=== PATIENT | female | born 1965 | race Caucasian/White ===

== ENCOUNTER 2018-05-09 18:25 | Inpatient (IN) | payer MEDICAID ==
[2018-05-09] MEDS ORDERED: Sodium Chloride 0.9% 1,000 ML IV ONE (18:38)
--- NOTE | 2018-05-09 18:38 | ED Physician Chart ---
ED Chief Complaint/HPI - Patient Information Date Seen:: 05/09/18 Time Seen:: 18:25 Chief Complaint:: Abdominal Pain History of Present Illness:: onset x 2 days of intermittent, diffuse, crampy abdominal pain, N/V/D; pt denies trauma, H/As, S/T, neck pain, cough, C/P, SOB, A/C, fever, chills, or urinary s/s Allergies:: Allergies Allergy/AdvReac Type Severity Reaction Status Date / Time No Known Allergies Allergy Verified 05/09/18 18:29 Historian:: Patient Review:: Nurse's Note Reviewed, Old Chart Reviewed <Jn Small - Last Filed: 05/09/18 18:34> - Patient Information Allergies:: Allergies Allergy/AdvReac Type Severity Reaction Status Date / Time No Known Allergies Allergy Verified 05/09/18 18:29 Vitals:: Vital Signs - 8 hr 05/09/18 18:29 Temp 99.1 F HR 70 RR 25 BP 154/89 O2 Sat % 100 <Zeus Solomon - Last Filed: 05/10/18 02:07> ED Review of Systems - Review of Systems General/Constitutional: No fever, No chills, No weight loss, No weakness, No diaphoresis, No edema, No loss of appetite Skin: No skin lesions, No rash, No bruising Head: No headache, No light-headedness Eyes: No loss of vision, No pain, No diplopia ENT: No earache, No nasal drainage, No sore throat, No tinnitus Neck: No neck pain, No swelling, No thyromegaly, No stiffness, No mass noted Cardio Vascular: No chest pain, No palpitations, No PND, No orthopnea, No edema Pulmonary: No SOB, No cough, No sputum, No wheezing GI: Nausea, Vomiting, Diarrhea, Pain, No melena, No hematochezia, No constipation, No hematemesis G/U: No dysuria, No frequency, No hematuria, No nacturia [employer]: No vaginal discharge, No abnormal vaginal bleed, No contraction Musculoskeletal: No bone or joint pain, No back pain, No muscle pain Endocrine: No polyuria, No polydipsia Psychiatric: No prior psych history, No depression, No anxiety, No suicidal ideation, No homicidal ideation, No auditory hallucination, No visual hallucination Hematopoietic: No bruising, No lymphadenopathy Allergic/Immuno: No urticaria, No angioedema Neurological: No syncope, No focal symptoms, No weakness, No paresthesia, No headache, No seizure, No dizziness, No confusion, No vertigo <Jn Small - Last Filed: 05/09/18 18:34> ED Past Medical History - Past Medical History Obtainable: Yes Past Medical History: PUD/GERD Family History: HTN Social History: Non Smoker, No Alcohol, No Drug Use, Single Surgical History: None Psychiatricy History: None Medication: Reviewed <Jn Small - Last Filed: 05/09/18 18:34> - Past Medical History Surgical History: Hysterectomy (Dec 2016), other (Myomectomy 2004, 2010) <Zeus Solomon - Last Filed: 05/10/18 02:07> Family Medical History - Family Member Mother History Unknown: Yes <Zeus Solomon - Last Filed: 05/10/18 02:07> ED Physical Exam - Physical Examination General/Constitutional: Awake, Well-developed, well-nourished, Alert, No distress, GCS 15, Non-toxic appearing, Ambulatory Head: Atraumatic Eyes: Lids, conjuctiva normal, PERRL, EOMI Skin: Nl inspection, No rash, No skin lesions, No ecchymosis, Well hydrated, No lymphadenopathy ENMT: External ears, nose nl, TM canals nl, Nasal exam nl, Lips, teeth, gums nl , Oropharynx nl, Tonsils nl Neck: Nontender, Full ROM w/o pain, No JVD, No nuchal rigidity, No bruit, No mass, No stridor Respiratory: Nl effort/Exclusion, Clear to Auscultation, No Wheeze/Rhonchi/Rales Cardio Vascular: RRR, No murmur, gallop, rubs, NL S1 S2, Carotid/Femoral/Distal pulses equal bilaterally GI: No tenderness/rebounding/guarding, No organomegaly, No hernia, Normal BS's, Nondistended, No mass/bruits, No McBurney tenderness : No CVA tenderness Extremities: No tenderness or effusion, Full ROM, normal strength in all extremities, No edema, Normal digits & nails Neuro/Psych: Alert/oriented, DTR's symmetric, Normal sensory exam, Normal motor strength, Judgement/insight normal, Mood normal, Normal gait, No focal deficits Misc: Normal back, No paraspinal tenderness <GeovannyJn - Last Filed: 05/09/18 18:34> ED Labs/Radiology/EKG Results - Lab Results Results: Laboratory Tests 05/09/18 05/09/18 05/09/18 18:50 18:50 18:50 WBC 11.3 H RBC 4.91 Hgb 14.6 Hct 43.3 MCV 88.1 MCH 29.7 MCHC Differential 33.8 RDW 12.1 Plt Count 222 MPV 8.8 Neutrophils % 89.2 H Lymphocytes % 8.0 L Monocytes % 2.2 Eosinophils % 0.5 Basophils % 0.1 PT 10.9 INR 1.05 Sodium 137 Potassium 3.7 Chloride 101 Carbon Dioxide 23.1 Anion Gap 16.6 H BUN 16 Creatinine 0.8 Est GFR ( Amer) > 60.0 Est GFR (Non-Af Amer) > 60.0 BUN/Creatinine Ratio 20.0 Glucose 105 Calcium 9.7 Total Bilirubin 0.9 AST 14 ALT 11 Alkaline Phosphatase 40 Creatine Kinase 111 Troponin I B-Natriuretic Peptide Total Protein 7.4 Albumin 4.7 Globulin 2.7 Albumin/Globulin Ratio 1.7 Triglycerides 80 Cholesterol 213 H LDL Cholesterol Direct 111 HDL Cholesterol 86 Amylase 63 Lipase 6 L Serum , Qual Urine Source Urine Color Urine Clarity Urine pH Ur Specific [place] Urine Protein Urine Glucose (UA) Urine Ketones Urine Blood Urine Nitrate Urine Bilirubin Urine Urobilinogen Ur Leukocyte Esterase Urine RBC Urine WBC Ur Epithelial Cells Urine Bacteria Urine Mucus POC Ur Test 05/09/18 05/09/18 05/09/18 18:50 18:50 18:50 WBC RBC Hgb Hct MCV MCH MCHC Differential RDW Plt Count MPV Neutrophils % Lymphocytes % Monocytes % Eosinophils % Basophils % PT INR Sodium Potassium Chloride Carbon Dioxide Anion Gap BUN Creatinine Est GFR ( Amer) Est GFR (Non-Af Amer) BUN/Creatinine Ratio Glucose Calcium Total Bilirubin AST ALT Alkaline Phosphatase Creatine Kinase Troponin I 0.01 B-Natriuretic Peptide 24.1 Total Protein Albumin Globulin Albumin/Globulin Ratio Triglycerides Cholesterol LDL Cholesterol Direct HDL Cholesterol Amylase Lipase Serum , Qual NEGATIVE Urine Source Urine Color Urine Clarity Urine pH Ur Specific [place] Urine Protein Urine Glucose (UA) Urine Ketones Urine Blood Urine Nitrate Urine Bilirubin Urine Urobilinogen Ur Leukocyte Esterase Urine RBC Urine WBC Ur Epithelial Cells Urine Bacteria Urine Mucus POC Ur Test 05/09/18 05/09/18 19:30 19:41 WBC RBC Hgb Hct MCV MCH MCHC Differential RDW Plt Count MPV Neutrophils % Lymphocytes % Monocytes % Eosinophils % Basophils % PT INR Sodium Potassium Chloride Carbon Dioxide Anion Gap BUN Creatinine Est GFR ( Amer) Est GFR (Non-Af Amer) BUN/Creatinine Ratio Glucose Calcium Total Bilirubin AST ALT Alkaline Phosphatase Creatine Kinase Troponin I B-Natriuretic Peptide Total Protein Albumin Globulin Albumin/Globulin Ratio Triglycerides Cholesterol LDL Cholesterol Direct HDL Cholesterol Amylase Lipase Serum , Qual Urine Source CLEAN C Urine Color YELLOW Urine Clarity CLEAR Urine pH 6.0 Ur Specific [place] 1.015 Urine Protein NEGATIVE Urine Glucose (UA) NEGATIVE Urine Ketones 15 H Urine Blood MODERATE H Urine Nitrate NEGATIVE Urine Bilirubin NEGATIVE Urine Urobilinogen 0.2 Ur Leukocyte Esterase NEGATIVE Urine RBC 5-10 H Urine WBC 2-5 Ur Epithelial Cells MODERATE Urine Bacteria FEW Urine Mucus FEW POC Ur Test Negative <Zeus Solomon - Last Filed: 05/10/18 02:07> ED Septic Shock - . Is Septic Shock (SBP<90, OR Lactate>4 mmol\L) present?: No <Jn Small - Last Filed: 05/09/18 18:34> - <6hrs of presentation: Vital Signs: Vital Signs - 8 hr 05/09/18 18:29 Temp 99.1 F HR 70 RR 25 BP 154/89 O2 Sat % 100 <Zeus Solomon - Last Filed: 05/10/18 02:07> ED Reassessment (Disposition) - Reassessment Reassessment Condition:: Improved - Diagnosis Diagnosis:: Abdominal Pain; N/V/D; AGE <Jn Small - Last Filed: 05/09/18 18:34> - Reassessment Reassessment:: 52 yo female had history of open myomectomy in 2004 and 2010, followed by hysterectomy for fibroids in Dec 2016. Ever since the hysterectomy, pt experienced chronic episodic abdominal bloating. Two days ago, pt developed severe abdominal pain, bloating, nausea and vomiting. CT abdomen/pelvis wo contrast showed questionable ileus vs small bowel obstruction. Lab showed elevated WBC 11.3 with left shift, empirical Zosyn and NS 1 L bolus were given. Pt's EKG showed sinus rhythm with multiple ventricular premature complexes. Pt did report palpitation and denied syncope. Pt was kept NPO. Zosyn, NS 2L IV bolus and zofran were given. NG tube was attempted but pt refused during the process of insertion. Pt will be transferred to insurance contracted hospital, [facility], under Dr. Barrett. - Patient Disposition Discharge/Transfer:: Acute Care (other hosp) <Zeus Solomon - Last Filed: 05/10/18 02:07>
[2018-05-09] MEDS ORDERED: Morphine Sulfate 2 mg/mL 1mL Syr IV STA ×2 (18:39→23:17)
[2018-05-09] MEDS ORDERED: Morphine Sulfate 2 mg/mL 1mL Syr ONE ×2 (18:53→23:22)
[2018-05-09 18:59] LABS: % BASOPHILS 0.1 % (0.0-2.0); % EOSINOPHILS 0.5 % (0.0-5.0); % MONOCYTES 2.2 % (2.0-10.0); % NEUTROPHILS 89.2 % (40.0-80.0); EOSINOPHILE ABSOLUTE 0.1 Th/cmm (0.1-0.4); HEMATOCRIT 43.3 % (41.0-60); HEMOGLOBIN 14.6 gm/dL (12-16); LYMPHOCYTE ABSOLUTE 0.9 Th/cmm (1.5-3.0); MEAN CELL VOLUME 88.1 fl (81-100); MEAN CORPUSCULAR HEMOGLOBIN 29.7 pg (27.0-31.0); MEAN CORPUSCULAR HGB CONC 33.8 pg (28.0-36.0); MEAN PLATELET VOLUME 8.8 fl; MONOCYTE ABSOLUTE 0.2 Th/cmm (0.3-1.0); NEUTROPHILE ABSOLUTE 10.1 Th/cmm (1.8-8.0); PLATELET COUNT 222 Th/cmm (150-400); RED BLOOD COUNT 4.91 Mil/cmm (3.80-5.10); RED CELL DISTRIBUTION WIDTH 12.1 % (11.5-20.0); WHITE BLOOD COUNT 11.3 Th/cmm (4.8-10.8)
[2018-05-09 19:11] LABS: INR 1.05 (0.5-1.4); PROTHROMBIN TIME (TEST) 10.9 SECONDS (9.5-11.5)
[2018-05-09 19:14] LABS: ALB/GLOB RATIO 1.7 (1.0-1.8); ALBUMIN 4.7 gm/dL (3.7-5.3); ALKALINE PHOSPHATASE 40 U/L (34-104); AMYLASE SERUM 63 U/L (29-103); ANION GAP 16.6 (7.0-16.0); BILIRUBIN,TOTAL 0.9 mg/dL (0.3-1.0); BUN - UREA NITROGEN 16 mg/dL (7-25); CALCIUM SERUM 9.7 mg/dL (8.6-10.3); CARBON DIOXIDE 23.1 mEq/L (21.0-31.0); CHLORIDE 101 mEq/L (98-107); CHOLESTEROL 213 mg/dL (<200); CREATININE - SERUM 0.8 mg/dL (0.6-1.2); CREATININE KINASE 111 U/L (30-223); GFR AFRICAN-AMERICAN > 60.0 ml/min (>90); GFR NON AFRICAN-AMERICAN > 60.0 ml/min; GLUCOSE 105 mg/dL (70-105); HDL -HIGH DENSITY LIPOPROTEIN 86 mg/dL (23-92); LIPASE 6 U/L (11-82); POTASSIUM SERUM 3.7 mEq/L (3.5-5.1); SGOT 14 U/L (13-39); SGPT/ALT 11 U/L (7-52); SODIUM SERUM 137 mEq/L (136-145); TOTAL PROTEIN,SERUM 7.4 gm/dL (6.0-8.3); TRIGLYCERIDES 80 mg/dL (<150)
[2018-05-09 20:13] LABS: URINE SOURCE CLEAN C
[2018-05-09 20:15] LABS: URINE BILIRUBIN NEGATIVE (NEGATIVE); URINE BLOOD MODERATE (NEGATIVE); URINE GLUCOSE (UA) NEGATIVE (NEGATIVE); URINE KETONE 15 mg/dL (NEGATIVE); URINE LEUKOCYTE ESTERASE NEGATIVE (NEGATIVE); URINE MICROSCOPIC INDICATED? YES; URINE NITRATE NEGATIVE (NEGATIVE); URINE PROTEIN NEGATIVE (NEGATIVE); URINE UROBILINOGEN 0.2 E.U./dL (0.2 - 1.0)
[2018-05-09 20:19] LABS: URINE CLARITY CLEAR (CLEAR); URINE COLOR YELLOW
[2018-05-09 20:40] LABS: URINE BACTERIA FEW /hpf (NONE SEEN); URINE EPITHELIAL CELLS MODERATE /lpf (FEW)
[2018-05-09] MEDS ORDERED: Piperacillin Sodium/Tazobact 3.375 gm Vial IV ONE (20:48)
[2018-05-09] MEDS ORDERED: Fleet Enema 135 mL RC ONE (22:45)
[2018-05-10] MEDS ORDERED: Morphine Sulfate 2 mg/mL 1mL Syr IVP PRN (03:25)
[2018-05-10] MEDS ORDERED: Sodium Chloride 0.9% 1,000 ML IV SCH (04:00)
[2018-05-10 04:44] VITALS: BP 113/63
--- NOTE | 2018-05-10 08:37 | Diagnostic Imaging Report ---
Exam: CT examination abdomen pelvis HISTORY abdominal pain Total DLP equals 386 CTDI equals 8.2 Findings: Multiple contiguous thin section of the abdomen pelvis obtained from lower thorax to pubic symphysis without administration of contrast material, no prior studies available comparison. The study demonstrates normal aeration of lung parenchyma the bases The liver and spleen intact. The gallbladder is distended with the kidneys demonstrate no evidence of obstructive uropathy or nephrolithiasis. The visualized pancreas is intact. There is evidence for distention of small bowel loops in the left lower quadrant most likely represent small bowel obstruction. Moderate amount of fecal content is noted throughout the colon. The appendix is intact No free fluid visualized. The uterus is normal. Bony structures demonstrate no evidence for lytic or blastic changes. IMPRESSION: Most likely small bowel obstruction Clinical correlation recommended Moderate amount of fecal content throughout the colon.
--- NOTE | 2018-05-10 08:45 | Diagnostic Imaging Report ---
CHEST X-RAY: AP view INDICATION: Shortness of breath COMPARISON: None FINDINGS: There is no focal consolidation or pleural effusions The heart is normal in size. There is mild scoliosis. IMPRESSION: No focal consolidation identified.
[2018-05-10] MEDS ORDERED: Diatrizoate Meglumine/Diatri 30 mL Sol PO ONE (14:10)
[2018-05-11 05:53] LABS: % EOSINOPHILS 1.3 % (0.0-5.0); % LYMPHOCYTES 27.3 % (20.0-50.0); % MONOCYTES 6.9 % (2.0-10.0); % NEUTROPHILS 63.5 % (40.0-80.0); BASOPHILE ABSOLUTE 0.1 Th/cumm (0-0.2); EOSINOPHILE ABSOLUTE 0.1 Th/cmm (0.1-0.4); HEMATOCRIT 36.6 % (41.0-60); HEMOGLOBIN 12.4 gm/dL (12-16); LYMPHOCYTE ABSOLUTE 1.8 Th/cmm (1.5-3.0); MEAN CELL VOLUME 88.5 fl (81-100); MEAN CORPUSCULAR HEMOGLOBIN 29.8 pg (27.0-31.0); MEAN CORPUSCULAR HGB CONC 33.7 pg (28.0-36.0); MEAN PLATELET VOLUME 8.9 fl; MONOCYTE ABSOLUTE 0.5 Th/cmm (0.3-1.0); NEUTROPHILE ABSOLUTE 4.2 Th/cmm (1.8-8.0); PLATELET COUNT 175 Th/cmm (150-400); RED BLOOD COUNT 4.14 Mil/cmm (3.80-5.10); RED CELL DISTRIBUTION WIDTH 12.1 % (11.5-20.0); WHITE BLOOD COUNT 6.7 Th/cmm (4.8-10.8)
--- NOTE | 2018-05-11 06:20 | History & Physical ---
ADMIT DATE: 05/10/2018 CHIEF COMPLAINT: Abdominal pain associated with nausea and vomiting. HISTORY OF PRESENT ILLNESS: This is a 52-year-old female who was brought to the Emergency Room for evaluation of the persistent nausea, vomiting and abdominal pain. The patient was evaluated in the Emergency Room, had a CT abdomen and pelvis that showed acute small-bowel obstruction, so the patient was admitted for further treatment. The patient said that for the past few weeks has been having abdominal issues including bloating. The patient said that she in past few years had twice myomectomy done. The patient denies fever, no chills, no diarrhea, no hematemesis, no melena, no dysuria or hematuria or any other concern reported. PAST MEDICAL HISTORY: ____. PAST SURGICAL HISTORY: Myomectomy in the past. FAMILY HISTORY: Noncontributory. SOCIAL HISTORY: Lives in ____. MEDICATIONS: Medication list is reviewed. ALLERGIES: None. REVIEW OF SYSTEMS: As per HPI, 12-point system was negative. PHYSICAL EXAMINATION: VITAL SIGNS: Temperature 98.0, pulse 60, respiration 18, blood pressure 96/53. Pain 0/10, oxygen 98% on room air. HEENT. Unremarkable. HEART: S1 and S2 normal. LUNGS: Clear to auscultation. ABDOMEN: Soft, nontender. Hypoactive bowel sounds, no guarding. NEUROLOGIC: Alert, awake and oriented. No focal deficits. AVAILABLE LABORATORY DATA: Reviewed. ASSESSMENT: 1. Acute small-bowel obstruction. 2. Leukocytosis. PLAN: The patient was started on empiric antibiotics. Currently on n.p.o., IV fluid started. GI consulted. Small bowel series ordered. We will follow up on the small bowel series with GI recommendation. Discussed with the patient her condition, plan of care discussed with nursing staff. She was given morphine and Zofran as needed. JOB# [id number]
[2018-05-11 06:31] LABS: ANION GAP 10.2 (7.0-16.0); BUN - UREA NITROGEN 10 mg/dL (7-25); CALCIUM SERUM 8.5 mg/dL (8.6-10.3); CARBON DIOXIDE 23.2 mEq/L (21.0-31.0); CHLORIDE 109 mEq/L (98-107); CREATININE - SERUM 0.7 mg/dL (0.6-1.2); GFR AFRICAN-AMERICAN > 60.0 ml/min (>90); GFR NON AFRICAN-AMERICAN > 60.0 ml/min; GLUCOSE 84 mg/dL (70-105); POTASSIUM SERUM 3.4 mEq/L (3.5-5.1); SODIUM SERUM 139 mEq/L (136-145)
--- NOTE | 2018-05-11 10:17 | Diagnostic Imaging Report ---
Small bowel follow-through HISTORY: Abdominal distention. Water-soluble contrast passed freely from the stomach into the small bowel. Normal small bowel caliber and mucosal pattern. Normal transit time to the colon. No evidence of any extrinsic masses. IMPRESSION: Negative examination. No evidence of obstruction.
--- NOTE | 2018-05-11 11:50 | Consultation ---
DATE OF CONSULTATION: 05/10/2018 REASON FOR CONSULTATION: Small-bowel obstruction. HISTORY OF PRESENT ILLNESS: This consult was obtained through the courtesy of Dr. Jones for this 52-year-old with insignificant past medical history, only surgeries, who had two myomectomies and then a hysterectomy over the last 12 years, the hysterectomy was done 2 years ago. After that she started having bloating, abdominal discomfort. She had an attack of ovarian cyst rupture about 3 months ago and then a couple of days ago started having abdominal pain. She thought it was the same thing, but it was not. She started having discomfort, bloating, significant abdominal pain, so she came to the hospital, had a CAT scan, which showed possible bowel obstruction, so the patient was admitted. GI consult was called in for further evaluation. PAST MEDICAL HISTORY: Negative. PAST SURGICAL HISTORY: Two myomectomies and hysterectomy. SOCIAL HISTORY: Nonsmoker. Drinks alcohol on infrequent social occasion. No IV drug abuser. She works in an office. FAMILY HISTORY: Grandmother with some throat cancer. MEDICATIONS AT HOME: None. ALLERGIES: None. REVIEW OF SYSTEMS: No weight loss. No nausea or vomiting. No hematemesis, melena or hematochezia. She never had an endoscopy or colonoscopy. PHYSICAL EXAMINATION: GENERAL: The patient is awake, oriented to self, place, and time; in no acute distress. VITAL SIGNS: Blood pressure is 96/53, heart rate 68, respiratory rate 18, temperature is 98.0. HEAD AND NECK: Pupils reactive to light and accommodation. Extraocular muscles intact. Sclerae are anicteric. Conjunctivae not pale. Oral cavity, no lesion. NECK: Supple. CHEST: Good air entry. LUNGS: Clear to auscultation. CARDIOVASCULAR: Regular rate and rhythm. No murmur or gallop. ABDOMEN: Soft, positive bowel sounds. Abdomen is slightly tender. EXTREMITIES: Lower extremities, no edema. CENTRAL NERVOUS SYSTEM: Grossly nonfocal. LABORATORY DATA: White count 11.3, rest of CBC unremarkable. Chemistry was unremarkable other than cholesterol 213. A CAT scan showed possible small-bowel obstruction and moderate amount of fecal material. She is undergoing a small bowel follow through. IMPRESSION: A 52-year-old with possible small-bowel obstruction. ASSESSMENT AND PLAN: 1. Possible small-bowel obstruction, more than likely just ileus. The patient already underwent a small bowel follow-through. She had a couple of bowel movements. She feels better, so we will await them to resolve. If she continues to have bowel movements, we will add more laxatives, flush her out and as an outpatient she should have a screening colonoscopy. 2. Recurrent abdominal pain. This most likely is a picture of irritable bowel syndrome. The patient should be treated with something like dicyclomine, Elavil, probiotics, etc. would be recommended depending on the followup. 3. The patient is very concerned about H. pylori, etc., but this is an outpatient thing to be dealt with and it has nothing to do with the current presentation. Thank you, Dr. Jones, for allowing me to participate in the care of the patient. If you have any further questions, please let me know. JOB# [id number]
[2018-05-11] MEDS ORDERED: Magnesium Citrate 1.75 GM/300 mL Bottle PO ONE (14:30)
[2018-05-11] MEDS ORDERED: Potassium Chloride 20 mEq ER Tab PO ONE (15:50)
--- NOTE | 2018-05-11 17:09 | GI Progress Note ---
Subjective - Review of Systems Service Date: 05/11/18 Events since last encounter: No events Negative SBFT Small BM Objective - Results Result Diagrams: 05/11/18 05:20 05/11/18 05:20 Recent Labs: Laboratory Last Values WBC 6.7 Th/cmm (4.8-10.8) 05/11/18 05:20 RBC 4.14 Mil/cmm (3.80-5.10) 05/11/18 05:20 Hgb 12.4 gm/dL (12-16) 05/11/18 05:20 Hct 36.6 % (41.0-60) L 05/11/18 05:20 MCV 88.5 fl (81-100) 05/11/18 05:20 MCH 29.8 pg (27.0-31.0) 05/11/18 05:20 MCHC Differential 33.7 pg (28.0-36.0) 05/11/18 05:20 RDW 12.1 % (11.5-20.0) 05/11/18 05:20 Plt Count 175 Th/cmm (150-400) 05/11/18 05:20 MPV 8.9 fl 05/11/18 05:20 Neutrophils % 63.5 % (40.0-80.0) 05/11/18 05:20 Lymphocytes % 27.3 % (20.0-50.0) 05/11/18 05:20 Monocytes % 6.9 % (2.0-10.0) 05/11/18 05:20 Eosinophils % 1.3 % (0.0-5.0) 05/11/18 05:20 Basophils % 1.0 % (0.0-2.0) 05/11/18 05:20 PT 10.9 SECONDS (9.5-11.5) 05/09/18 18:50 INR 1.05 (0.5-1.4) 05/09/18 18:50 Sodium 139 mEq/L (136-145) 05/11/18 05:20 Potassium 3.4 mEq/L (3.5-5.1) L 05/11/18 05:20 Chloride 109 mEq/L (98-107) H 05/11/18 05:20 Carbon Dioxide 23.2 mEq/L (21.0-31.0) 05/11/18 05:20 Anion Gap 10.2 (7.0-16.0) 05/11/18 05:20 BUN 10 mg/dL (7-25) 05/11/18 05:20 Creatinine 0.7 mg/dL (0.6-1.2) 05/11/18 05:20 Est GFR ( Amer) > 60.0 ml/min (>90) 05/11/18 05:20 Est GFR (Non-Af Amer) > 60.0 ml/min 05/11/18 05:20 BUN/Creatinine Ratio 14.3 05/11/18 05:20 Glucose 84 mg/dL (70-105) 05/11/18 05:20 Calcium 8.5 mg/dL (8.6-10.3) L 05/11/18 05:20 Total Bilirubin 0.9 mg/dL (0.3-1.0) 05/09/18 18:50 AST 14 U/L (13-39) 05/09/18 18:50 ALT 11 U/L (7-52) 05/09/18 18:50 Alkaline Phosphatase 40 U/L (34-104) 05/09/18 18:50 Creatine Kinase 111 U/L (30-223) 05/09/18 18:50 Troponin I 0.01 ng/mL (0.01-0.05) 05/09/18 18:50 B-Natriuretic Peptide 24.1 pg/mL (5.0-100.0) 05/09/18 18:50 Total Protein 7.4 gm/dL (6.0-8.3) 05/09/18 18:50 Albumin 4.7 gm/dL (3.7-5.3) 05/09/18 18:50 Globulin 2.7 gm/dL 05/09/18 18:50 Albumin/Globulin Ratio 1.7 (1.0-1.8) 05/09/18 18:50 Triglycerides 80 mg/dL (<150) 05/09/18 18:50 Cholesterol 213 mg/dL (<200) H 05/09/18 18:50 LDL Cholesterol Direct 111 mg/dL (75-193) 05/09/18 18:50 HDL Cholesterol 86 mg/dL (23-92) 05/09/18 18:50 Amylase 63 U/L (29-103) 05/09/18 18:50 Lipase 6 U/L (11-82) L 05/09/18 18:50 Serum , Qual NEGATIVE (NEGATIVE) 05/09/18 18:50 Urine Source CLEAN C 05/09/18 19:30 Urine Color YELLOW 05/09/18 19:30 Urine Clarity CLEAR (CLEAR) 05/09/18 19:30 Urine pH 6.0 (4.6 - 8.0) 05/09/18 19:30 Ur Specific [place] 1.015 (1.005-1.030) 05/09/18 19:30 Urine Protein NEGATIVE mg/dL (NEGATIVE) 05/09/18 19:30 Urine Glucose (UA) NEGATIVE mg/dL (NEGATIVE) 05/09/18 19:30 Urine Ketones 15 mg/dL (NEGATIVE) H 05/09/18 19:30 Urine Blood MODERATE (NEGATIVE) H 05/09/18 19:30 Urine Nitrate NEGATIVE (NEGATIVE) 05/09/18 19:30 Urine Bilirubin NEGATIVE (NEGATIVE) 05/09/18 19:30 Urine Urobilinogen 0.2 E.U./dL (0.2 - 1.0) 05/09/18 19:30 Ur Leukocyte Esterase NEGATIVE (NEGATIVE) 05/09/18 19:30 Urine RBC 5-10 /hpf (0-5) H 05/09/18 19:30 Urine WBC 2-5 /hpf (0-5) 05/09/18 19:30 Ur Epithelial Cells MODERATE /lpf (FEW) 05/09/18 19:30 Urine Bacteria FEW /hpf (NONE SEEN) 05/09/18 19:30 Urine Mucus FEW /lpf (FEW) 05/09/18 19:30 Urine Test NEGATIVE 05/09/18 19:30 POC Ur Test Negative 05/09/18 19:41 - Physical Exam Vitals and I&O: Vital Signs Temp 98.0 F 05/11/18 12:00 Pulse 63 05/11/18 12:00 Resp 18 05/11/18 13:00 BP 103/67 05/11/18 12:00 Pulse Ox 98 05/11/18 12:00 Intake & Output 05/10/18 05/11/18 05/11/18 18:59 06:59 18:59 Intake Total 200 100 200 Balance 200 100 200 Weight (lbs) 56.699 kg 56.699 kg Intake: Intake, IV Amount 200 100 100 Piperacillin Sodium/ 200 100 100 Tazobact 4.5 gm In Sodium Chloride 0.9% 100 ml @ 100 mls/hr IV Q8HR [facility] Rx #:[id number] Oral 0 100 Other: # Voids 2 3 # Bowel Movements 1 1 Stool Characteristics Hard Hard Hard Brown Brown Brown Weight Source Bedscale Bedscale Active Medications: Current Medications Acetaminophen (Tylenol) 650 mg PO Q6H PRN PRN Reason: Pain Or Fever above 101 Stop: 07/10/18 04:54 Last Admin: 05/11/18 05:30 Dose: 650 mg Sodium Chloride (Nacl 0.9%) 1,000 mls @ 100 mls/hr IV .Q10H [facility] Stop: 07/09/18 03:59 Last Admin: 05/10/18 03:57 Dose: 100 mls/hr Piperacillin Sod/Tazobactam (Sod 4.5 gm/ Sodium Chloride) 100 mls @ 100 mls/hr IV Q8HR [facility] Stop: 07/09/18 06:59 Last Admin: 05/11/18 12:43 Dose: 100 mls/hr Morphine Sulfate (Morphine) 2 mg IVP Q6HR PRN PRN Reason: Abdominal Pain Stop: 07/09/18 03:24 Ondansetron HCl (Zofran) 4 mg IV Q6H PRN PRN Reason: Nausea / Vomiting Stop: 07/09/18 03:24 General: Alert, No acute distress HEENT: Atraumatic Neck: Supple Cardiovascular: Regular rate Lungs: Clear to auscultation Abdomen: Bowel sounds, Soft, no Tender, no Distended Assessment/Plan - Problem List Patient Problems: All Active Problems LEFT LOWER QUADRANT/FLANK PAIN (Acute) - Assessment Assessment: Abdominal pain SBO - Plan Plan: 1. Abdominal pain Ileus more than SBO resolving Mag citrate and advance diet. OPT colonoscopy 2. SBO as above
--- NOTE | 2018-05-11 21:01 | General Progress Note ---
Subjective - Review of Systems Service Date: 05/11/18 Subjective: Late entry: Patient was seen and examined earlier today patient was doing fine denied any complaints Tolerated diet well Objective - Results Result Diagrams: 05/11/18 05:20 05/11/18 05:20 Recent Labs: Laboratory Last Values WBC 6.7 Th/cmm (4.8-10.8) 05/11/18 05:20 RBC 4.14 Mil/cmm (3.80-5.10) 05/11/18 05:20 Hgb 12.4 gm/dL (12-16) 05/11/18 05:20 Hct 36.6 % (41.0-60) L 05/11/18 05:20 MCV 88.5 fl (81-100) 05/11/18 05:20 MCH 29.8 pg (27.0-31.0) 05/11/18 05:20 MCHC Differential 33.7 pg (28.0-36.0) 05/11/18 05:20 RDW 12.1 % (11.5-20.0) 05/11/18 05:20 Plt Count 175 Th/cmm (150-400) 05/11/18 05:20 MPV 8.9 fl 05/11/18 05:20 Neutrophils % 63.5 % (40.0-80.0) 05/11/18 05:20 Lymphocytes % 27.3 % (20.0-50.0) 05/11/18 05:20 Monocytes % 6.9 % (2.0-10.0) 05/11/18 05:20 Eosinophils % 1.3 % (0.0-5.0) 05/11/18 05:20 Basophils % 1.0 % (0.0-2.0) 05/11/18 05:20 PT 10.9 SECONDS (9.5-11.5) 05/09/18 18:50 INR 1.05 (0.5-1.4) 05/09/18 18:50 Sodium 139 mEq/L (136-145) 05/11/18 05:20 Potassium 3.4 mEq/L (3.5-5.1) L 05/11/18 05:20 Chloride 109 mEq/L (98-107) H 05/11/18 05:20 Carbon Dioxide 23.2 mEq/L (21.0-31.0) 05/11/18 05:20 Anion Gap 10.2 (7.0-16.0) 05/11/18 05:20 BUN 10 mg/dL (7-25) 05/11/18 05:20 Creatinine 0.7 mg/dL (0.6-1.2) 05/11/18 05:20 Est GFR ( Amer) > 60.0 ml/min (>90) 05/11/18 05:20 Est GFR (Non-Af Amer) > 60.0 ml/min 05/11/18 05:20 BUN/Creatinine Ratio 14.3 05/11/18 05:20 Glucose 84 mg/dL (70-105) 05/11/18 05:20 Calcium 8.5 mg/dL (8.6-10.3) L 05/11/18 05:20 Total Bilirubin 0.9 mg/dL (0.3-1.0) 05/09/18 18:50 AST 14 U/L (13-39) 05/09/18 18:50 ALT 11 U/L (7-52) 05/09/18 18:50 Alkaline Phosphatase 40 U/L (34-104) 05/09/18 18:50 Creatine Kinase 111 U/L (30-223) 05/09/18 18:50 Troponin I 0.01 ng/mL (0.01-0.05) 05/09/18 18:50 B-Natriuretic Peptide 24.1 pg/mL (5.0-100.0) 05/09/18 18:50 Total Protein 7.4 gm/dL (6.0-8.3) 05/09/18 18:50 Albumin 4.7 gm/dL (3.7-5.3) 05/09/18 18:50 Globulin 2.7 gm/dL 05/09/18 18:50 Albumin/Globulin Ratio 1.7 (1.0-1.8) 05/09/18 18:50 Triglycerides 80 mg/dL (<150) 05/09/18 18:50 Cholesterol 213 mg/dL (<200) H 05/09/18 18:50 LDL Cholesterol Direct 111 mg/dL (75-193) 05/09/18 18:50 HDL Cholesterol 86 mg/dL (23-92) 05/09/18 18:50 Amylase 63 U/L (29-103) 05/09/18 18:50 Lipase 6 U/L (11-82) L 05/09/18 18:50 Serum , Qual NEGATIVE (NEGATIVE) 05/09/18 18:50 Urine Source CLEAN C 05/09/18 19:30 Urine Color YELLOW 05/09/18 19:30 Urine Clarity CLEAR (CLEAR) 05/09/18 19:30 Urine pH 6.0 (4.6 - 8.0) 05/09/18 19:30 Ur Specific [place] 1.015 (1.005-1.030) 05/09/18 19:30 Urine Protein NEGATIVE mg/dL (NEGATIVE) 05/09/18 19:30 Urine Glucose (UA) NEGATIVE mg/dL (NEGATIVE) 05/09/18 19:30 Urine Ketones 15 mg/dL (NEGATIVE) H 05/09/18 19:30 Urine Blood MODERATE (NEGATIVE) H 05/09/18 19:30 Urine Nitrate NEGATIVE (NEGATIVE) 05/09/18 19:30 Urine Bilirubin NEGATIVE (NEGATIVE) 05/09/18 19:30 Urine Urobilinogen 0.2 E.U./dL (0.2 - 1.0) 05/09/18 19:30 Ur Leukocyte Esterase NEGATIVE (NEGATIVE) 05/09/18 19:30 Urine RBC 5-10 /hpf (0-5) H 05/09/18 19:30 Urine WBC 2-5 /hpf (0-5) 05/09/18 19:30 Ur Epithelial Cells MODERATE /lpf (FEW) 05/09/18 19:30 Urine Bacteria FEW /hpf (NONE SEEN) 05/09/18 19:30 Urine Mucus FEW /lpf (FEW) 05/09/18 19:30 Urine Test NEGATIVE 05/09/18 19:30 POC Ur Test Negative 05/09/18 19:41 - Physical Exam Vitals and I&O: Vital Signs Temp 97.1 F 05/11/18 17:03 Pulse 62 05/11/18 17:03 Resp 18 05/11/18 17:03 BP 97/68 05/11/18 17:03 Pulse Ox 98 05/11/18 17:03 Intake & Output 05/11/18 05/11/18 05/12/18 06:59 18:59 06:59 Intake Total 100 680 Balance 100 680 Weight (lbs) 61.87 kg Intake: Intake, IV Amount 100 100 Piperacillin Sodium/ 100 100 Tazobact 4.5 gm In Sodium Chloride 0.9% 100 ml @ 100 mls/hr IV Q8HR [facility] Rx #:[id number] Oral 580 Other: # Voids 3 # Bowel Movements 0 Stool Characteristics Hard Hard Brown Brown Weight Source Bedscale General: Alert, No acute distress HEENT: Atraumatic Neck: Supple Cardiovascular: Regular rate Lungs: Clear to auscultation Abdomen: Bowel sounds, Soft, no Tender, no Distended Assessment/Plan - Assessment Assessment: Small bowel obstruction resolved - Plan Plan: DC home today Advised to avoid constipation Out patient GI follow up recomended
--- NOTE | 2018-05-12 07:59 | Consultation ---
DATE OF CONSULTATION: 05/11/2018 INFECTIOUS DISEASE CONSULTATION REFERRING PHYSICIAN: Dr. Jones. REASON FOR CONSULTATION: Leukocytosis and bowel obstruction. HISTORY OF PRESENT ILLNESS: The patient is a 52-year-old female with a past medical history of myomectomy and hysterectomy, chronic constipation and intermittent abdominal pain, presented to the ER for nausea, vomiting and abdominal pain. On initial evaluation, the patient was afebrile and WBC count 11,000. CT scan of abdomen and pelvis shows a small-bowel obstruction. The patient was started on Zosyn. A small bowel follow through was performed and it shows came negative. Minimal laxity was given and she did well. She again complains of bloating all the time. PAST MEDICAL HISTORY: Myomectomy and hysterectomy, chronic intermittent abdominal pain, peptic ulcer disease, GERD. FAMILY HISTORY: Hypertension. SOCIAL HISTORY: The patient lives in home, single, no history of smoking, alcohol or drug use. MEDICATIONS: Per medication reconciliation sheet. Antibiotic hillman, the patient on Zosyn. PAST SURGICAL HISTORY: Hysterectomy in 2016 and myomectomy in 2006 and 2010. MEDICATIONS: Per medication reconciliation. Antibiotic hillman Zosyn. REVIEW OF SYSTEMS: GENERAL: The patient denies any fever, no chills. HEAD, EARS, EYES, NOSE, THROAT: Head is normocephalic, atraumatic. Oral cavity moist, pink tongue. Eyes: No pallor, no icterus. RESPIRATORY: No cough, no shortness of breath. CARDIOVASCULAR: No chest pain or palpitation. GASTROINTESTINAL: The patient has with nausea and vomiting has improved. The patient has some bloating also improving. The patient is constipated most of the time. No diarrhea. GENITOURINARY: No dysuria, no hematuria. NEUROLOGIC: No headache, no dizziness, no focal weakness. PHYSICAL EXAMINATION: VITAL SIGNS: Shows temperature is 97 degrees Fahrenheit, pulse 63, respirations 17, blood pressure 105/73. GENERAL: The patient is comfortable, lying. NEUROLOGICAL: Bed as well, although not in acute distress. HEAD, EARS, EYES, NOSE, THROAT: Head is normocephalic, atraumatic. Oral cavity moist, pink tongue. Eyes: No pallor, no icterus. Pupils are PERRLA, EOMI. NECK: Supple, no JVD, no bruit. Trachea midline. CHEST: Bilateral breath sounds. No crackles or wheezing. HEART: S1, S2 within normal rate, regular rhythm. No murmur, no gallop. ABDOMEN: Soft, nontender, nondistended. Bowel sounds present. EXTREMITIES: No cyanosis, no clubbing, no edema. NEUROLOGIC: Alert, awake, oriented x 3. No focal deficit. LABORATORY DATA: Current lab shows WBC count is 6700, hemoglobin 12.4, hematocrit 36.6, platelets are 135,000, neutrophils 63%. Sodium 139, potassium 3.4, chloride 109, bicarbonate is 23, BUN is 10, creatinine 0.7, glucose is 84. Urinalysis negative nitrite, negative leukoesterase. Blood moderate, RBC 5-10 and moderate blood cells. Small bowel series was negative. Chest x-ray was negative. CT scan of abdomen and pelvis, suspected small-bowel obstruction. IMPRESSION: 1. Leukocytosis, improved, most likely reactive. 2. May have a mild ileus versus a ____ constipation. 3. Gastroesophageal reflux disease. RECOMMENDATIONS: May change antibiotic to Augmentin p.o. The patient is to have regular bowel movement and may use some laxative versus fibrous ____ Metamucil. Otherwise, no further intervention needed at this time. No further intervention needed from the ID point of view. Thank you, Dr. Jones, for involving me in taking care of this patient. JOB# [id number]
== END 2018-05-11 17:55 | disposition home or self-care (01) | DRG 247 ==
LOC: ER 18:25 → TELE 05-10 03:12
PROVIDERS: ADMIT Family Medicine; ATTEND Family Medicine
DX: K56.7 Ileus, unspecified (principal); D72.829 Elevated white blood cell count, unspecified; K21.9 Gastro-esophageal reflux disease without esophagitis; K59.09 Other constipation; G89.29 Other chronic pain; Z90.710 Acquired absence of both cervix and uterus
CPT/HCPCS: 36415-UA; 71045-TC; 74250-TC; 80048-TC; 80053-TC; 80061-TC; 81001-TC; 81025-TC; 82150-TC; 82550-TC; 83690-TC; 83880-TC; 84484-TC; 84703-TC; 85007-TC; 85025-TC; 85610-TC; 87086-90; 93005; 94760; 96375; 96376; C9113; J2270; J2405; J2543; J7030; Z7610